=== PATIENT | female | born 1925 | race Caucasian/White ===

== ENCOUNTER 2017-09-23 15:46 | Inpatient (IN) | payer MEDICARE ==
[~2017-09-23] VITALS: Ht 157.4 cm; Wt 86.9 kg
[~2017-09-23 15:46] MED LIST: DARVOCET N 1001 TAB PO; DYAZIDE 25 MG-31 CAP PO; LOSARTAN POTASS1 TA4 PO; METFORMIN500 MG PO; MUCINEX ER600 MG PO; PRILOSEC20 M1 PO; SIMVASTATIN40 MG PO; ZOCOR40 MG PO
[2017-09-23 15:47] VITALS: BP 186/87
[2017-09-23] MEDS ORDERED: SIMVASTATIN40 MG PO (15:47)
[2017-09-23] MEDS ORDERED: GABAPENTIN800 MG PO (15:47)
[2017-09-23 16:17] LABS: BILIRUBIN NEGATIVE (NEGATIVE); BLOOD TRACE-LYSED (NEGATIVE); CLARITY CLEAR (CLEAR); COLOR YELLOW (YELLOW); GLUCOSE NEGATIVE (NEGATIVE); KETONE 1+ (NEGATIVE); LEUKO ESTERASE NEGATIVE (NEGATIVE); NITRITE NEGATIVE (NEGATIVE); UROBILINOGEN 0.2 E.U./dl (0.2-1.0)
[2017-09-23 16:32] LABS: BASO % 0.3 % (0.0-1.0); EOS # 0.1 10*3/uL (0.0-0.4); EOS % 0.7 % (1.0-4.0); HEMATOCRIT 44.5 % (37.0-47.0); HEMOGLOBIN 14.2 g/dl (12.0-16.0); LYMPH # 1.3 10*3/uL (1.3-4.4); LYMPH % 16.9 % (27.0-41.0); MEAN CELL VOLUME 93.1 fl (81.0-99.0); MEAN CORPUSCULAR HGB 29.7 pg (27.0-31.0); MEAN CORPUSCULAR HGB CONC 31.9 g/dl (33.0-37.0); MEAN PLATELET VOLUME 9.8 fl (9.6-12.3); MONO # 0.5 10*3/uL (0.1-1.0); MONO % 6.6 % (3.0-9.0); NEUT # 5.7 10*3/uL (2.3-7.9); NEUT % 75.2 % (47.0-73.0); PLATELET COUNT AUTOMATED 201 10*3/uL (130-400); RED BLOOD COUNT 4.78 10*6/uL (4.10-5.10); RED CELL DISTRI WIDTH 13.3 % (0-14.5); WHITE BLOOD COUNT 7.6 10*3/uL (4.8-10.8)
[2017-09-23 16:37] LABS: WBC 0-2 wbc/hpf (0-5)
[2017-09-23 16:38] LABS: HYALINE CAST 0-2
[2017-09-23 16:49] LABS: ALBUMIN 3.8 gm/dl (3.1-4.5); ALKALINE PHOSPHATASE 85 U/L (45-117); BUN 29 mg/dl (7-24); CHLORIDE 106 mmol/L (98-107); CREATININE 1.28 mg/dL (0.55-1.02); POTASSIUM 3.9 mmol/L (3.5-5.1); SGOT/AST 24 IU/L (3-35); SGPT/ALT 25 U/L (12-78); SODIUM 143 mmol/L (136-145)
[2017-09-23 16:50] LABS: TROPONIN I < 0.015 ng/ml (<0.045)
[2017-09-23 17:23] VITALS: BP 153/87
[2017-09-23 18:06] VITALS: BP 159/80
[2017-09-23 18:31] VITALS: BP 172/76
[2017-09-23 20:00] VITALS: BP 151/69
[2017-09-24] VITALS: BP 130/56
[2017-09-24 06:23] LABS: BASO % 0.4 % (0.0-1.0); EOS # 0.1 10*3/uL (0.0-0.4); EOS % 1.4 % (1.0-4.0); HEMATOCRIT 39.7 % (37.0-47.0); HEMOGLOBIN 12.7 g/dl (12.0-16.0); LYMPH # 1.8 10*3/uL (1.3-4.4); LYMPH % 24.3 % (27.0-41.0); MEAN CELL VOLUME 93.4 fl (81.0-99.0); MEAN CORPUSCULAR HGB 29.9 pg (27.0-31.0); MONO # 0.6 10*3/uL (0.1-1.0); MONO % 7.9 % (3.0-9.0); NEUT # 4.8 10*3/uL (2.3-7.9); NEUT % 65.7 % (47.0-73.0); PLATELET COUNT AUTOMATED 190 10*3/uL (130-400); RED BLOOD COUNT 4.25 10*6/uL (4.10-5.10); RED CELL DISTRI WIDTH 13.5 % (0-14.5); WHITE BLOOD COUNT 7.3 10*3/uL (4.8-10.8)
[2017-09-24 06:26] LABS: POTASSIUM 3.7 mmol/L (3.5-5.1)
[2017-09-24 06:38] LABS: CREATININE 1.06 mg/dL (0.55-1.02); PHOSPHOROUS 3.4 mg/dL (2.5-4.9); THYROID STIM HORMONE (HS) 1.22 uIU/ml (0.358-4.75)
[2017-09-24 07:39] LABS: VITAMIN D, 25-HYDROXY 58.5 ng/mL (30-100)
[2017-09-24 08:00] VITALS: BP 159/67
[2017-09-24] MEDS ORDERED: PRILOSEC20 M1 PO (09:40)
[2017-09-24 12:00] VITALS: BP 161/70
[2017-09-24 16:00] VITALS: BP 156/60
[2017-09-24 20:00] VITALS: BP 146/53
[2017-09-24 23:56] VITALS: BP 141/68
[2017-09-25 08:00] VITALS: BP 155/66
[2017-09-25 12:00] VITALS: BP 107/87
[2017-09-25 16:00] VITALS: BP 124/50
[2017-09-25 20:00] VITALS: BP 143/55
[2017-09-26] VITALS: BP 159/61
[2017-09-26 08:00] VITALS: BP 151/84
[2017-09-26 12:00] VITALS: BP 141/56
[2017-09-26] MEDS ORDERED: NYSTOP60 GM T (13:41)
== END 2017-09-26 14:50 | disposition other institution (70) | DRG 682 ==
LOC: ED 15:46 → EDHOLD 17:48 → 4E 17:48
PROVIDERS: Nurse Practitioner Family; Student in an Organized Health Care Education/Training Program
DX: N17.0 Acute kidney failure with tubular necrosis (principal); G93.41 Metabolic encephalopathy; R65.11 Systemic inflammatory response syndrome (SIRS) of non-infectious origin with acute organ dysfunction; I16.1 Hypertensive emergency; E11.22 Type 2 diabetes mellitus with diabetic chronic kidney disease; E11.42 Type 2 diabetes mellitus with diabetic polyneuropathy; E86.0 Dehydration; N18.3 Chronic kidney disease, stage 3 (moderate); R80.9 Proteinuria, unspecified; Z66 Do not resuscitate; Z51.5 Encounter for palliative care; J32.9 Chronic sinusitis, unspecified; K21.9 Gastro-esophageal reflux disease without esophagitis; E03.9 Hypothyroidism, unspecified; E78.5 Hyperlipidemia, unspecified; D72.810 Lymphocytopenia; I12.9 Hypertensive chronic kidney disease with stage 1 through stage 4 chronic kidney disease, or unspecified chronic kidney disease; G47.33 Obstructive sleep apnea (adult) (pediatric); M19.90 Unspecified osteoarthritis, unspecified site; Z96.1 Presence of intraocular lens; Z96.653 Presence of artificial knee joint, bilateral; Z90.49 Acquired absence of other specified parts of digestive tract; Z83.3 Family history of diabetes mellitus; Z98.49 Cataract extraction status, unspecified eye; Z90.710 Acquired absence of both cervix and uterus; Z82.49 Family history of ischemic heart disease and other diseases of the circulatory system; Z88.2 Allergy status to sulfonamides; Z79.899 Other long term (current) drug therapy; Z79.84 Long term (current) use of oral hypoglycemic drugs